=== PATIENT | female | born 1995 | race Caucasian/White ===

== ENCOUNTER 2016-12-06 10:25 | Emergency (ER) | payer OTHER ==
[~2016-12-06] VITALS: Ht 162.6 cm; Wt 65.8 kg
[~2016-12-06 10:25] MED LIST: ALBUTEROL17 G1 IH; ALBUTEROL17 GM INH; BIRTH CONTROL PILL PO; MEDROL DOSEPAK4 MG PO; NO MEDICATIONS; PREDNISONE PO; PROMETHAZINE-D240 ML PO; PSEUDOEPHEDRIN120 M1; ROBAXIN PO; VOLTAREN50 MG PO; VOLTAREN75 MG PO
[2016-12-06 12:50] LABS: URINE SOURCE CLEAN CATCH
[2016-12-06 13:01] LABS: URINE APPEARANCE CLEAR; URINE BILIRUBIN NEG (NEG); URINE BLOOD NEG (NEG); URINE COLOR YELLOW; URINE GLUCOSE NEG (NEG); URINE KETONE NEG (NEG); URINE LEUKOCYTE ESTERASE NEG (NEG); URINE NITRATE NEG (NEG); URINE PH 5.5 (5-8); URINE PROTEIN NEG (NEG); URINE SPECIFIC GRAVITY 1.024 (1.003-1.035); URINE UROBILINOGEN 0.2 MG/DL (NEG)
[2016-12-06 13:05] LABS: CULTURE INDICATED? NO
== END 2016-12-06 13:48 | disposition home or self-care (01) ==
LOC: CED 10:25
PROVIDERS: Emergency Medicine
DX: G43.909 Migraine, unspecified, not intractable, without status migrainosus (principal); J45.909 Unspecified asthma, uncomplicated; F41.9 Anxiety disorder, unspecified
CPT/HCPCS: 81003; 84703; 96374; 96375; 99283; J0780; J1200; J1885